=== PATIENT | male | born 2000 | race Caucasian/White ===

== ENCOUNTER 2019-02-22 14:53 | Emergency (ER) | payer OTHER ==
[~2019-02-22] VITALS: Ht 172.7 cm; Wt 85.5 kg
[2019-02-22 14:54] VITALS: BP 137/74
[2019-02-22] MEDS ORDERED: FLUORESCEIN OPHTH 1 MG STRIP OS ONE (17:15)
[2019-02-22] MEDS ORDERED: TETRACAINE 0.5% OPHTH SOLN 4ML OS ONE (17:15)
[2019-02-22] MEDS ORDERED: BACIOIN23 OS (17:42)
[2019-02-22] MEDS ORDERED: ERYT1OIN26 OS (17:42)
== END 2019-02-22 18:12 | disposition home or self-care (01) ==
LOC: M ED 14:53
DX: H01.005 Unspecified blepharitis left lower eyelid (principal); S05.02XA Injury of conjunctiva and corneal abrasion without foreign body, left eye, initial encounter; X58.XXXA Exposure to other specified factors, initial encounter; Y92.099 Unspecified place in other non-institutional residence as the place of occurrence of the external cause; Y93.9 Activity, unspecified; Y99.9 Unspecified external cause status; Z72.0 Tobacco use; Z91.013 Allergy to seafood

== ENCOUNTER 2019-07-24 10:04 | Emergency (ER) | payer OTHER ==
[~2019-07-24] VITALS: Ht 167.6 cm; Wt 84.7 kg
[2019-07-24 10:04] VITALS: BP 144/65
[~2019-07-24 10:04] MED LIST: BACIOIN23 OS; ERYT1OIN26 OS
[2019-07-24] MEDS ORDERED: ACETAMINOPHEN TAB 650MG DOSE (2X325MG) PO ONE (11:00)
[2019-07-24] MEDS ORDERED: KETOROLAC 60 MG/2 ML VIAL (J1885) IM ONE (11:00)
[2019-07-24] MEDS ORDERED: NORCO, ANEXSIA 5/325MG TABLET (HYDROcodone/ACETAMINOPHEN) PO ONE (11:00)
--- NOTE | 2019-07-24 11:34 | REP ---
Right knee series: Five views. History: Trauma. Findings: Five views of the right knee demonstrate that the patient is status post ACL reconstruction. Both the femoral and the tibial ACL reconstruction bony tunnels appear somewhat widened, 25 mm for the femoral tunnel and 20 mm for the tibial tunnel. There is no acute bony abnormality. There is a large joint effusion evident on the lateral radiograph. Impression: No fracture seen. Large joint effusion. Status post ACL reconstruction with widening of the tibial and femoral osseous canals. Electronically Signed by Doug Douglass MD 07/24/2019 02:10 P
[2019-07-24] MEDS ORDERED: KETO10TAB PO (11:47)
[2019-07-24] MEDS ORDERED: NORC1TAB7 PO (11:47)
== END 2019-07-24 12:01 | disposition home or self-care (01) ==
LOC: M ED 10:04
DX: M25.461 Effusion, right knee (principal); S83.8X1A Sprain of other specified parts of right knee, initial encounter; Y92.9 Unspecified place or not applicable; Y93.02 Activity, running; Y99.1 Military activity; F17.200 Nicotine dependence, unspecified, uncomplicated; Z87.828 Personal history of other (healed) physical injury and trauma; Z91.013 Allergy to seafood
CPT/HCPCS: 73564; 96372; 99284; J1885

== ENCOUNTER 2021-10-08 07:20 | Emergency (ER) | payer OTHER ==
[~2021-10-08] VITALS: Ht 172.7 cm; Wt 90.0 kg
[~2021-10-08 07:20] MED LIST changes: -ERYT1OIN26 OS; +ERYT5OIN25 OS; +KETO10TAB PO; +NORC1TAB7 PO
[2021-10-08] MEDS ORDERED: ACETAMINOPHEN 500 MG TAB PO ONE (08:25)
[2021-10-08 08:54] VITALS: BP 122/75
== END 2021-10-08 09:04 | disposition home or self-care (01) ==
LOC: M ED 07:20
DX: R51.9 Headache, unspecified (principal); T59.7X1A Toxic effect of carbon dioxide, accidental (unintentional), initial encounter; Y92.89 Other specified places as the place of occurrence of the external cause; Y99.1 Military activity; Z91.018 Allergy to other foods; F17.210 Nicotine dependence, cigarettes, uncomplicated